=== PATIENT | female | born 1945 | race Caucasian/White ===

== ENCOUNTER → 2020-08-08 | Day surgery (SDC) | payer MEDICARE ==
[~2020-08-08] MED LIST: ALLEGRA ALLERG180 MG PO; ASCORBIC ACID500 MG PO; CALTRATE 600 +1 EAC1 PO; CENTRUM ADULTS1 EACH PO; CLONAZEPAM1 MG PO; DIALYVITE VI1250 MCG PO; DILANTIN100 MG PO; K-DUR20 MEQ PO; LAMICTAL100 MG PO; NORCO 5-325 TA1 EACH PO; PEPCID AC20 MG PO; SINGULAIR10 MG PO; SYNTHROID25 MCG PO; TENORMIN50 MG PO; TRIAMTERENE-HC1 EAC3 PO; XARELTO10 MG PO; ZOLPIDEM TARTRA10 MG PO; ZONEGRAN100 MG PO
== END | disposition home or self-care (01) ==
LOC: FAS 06:47
DX: Z12.11 Encounter for screening for malignant neoplasm of colon (principal); K62.1 Rectal polyp; K21.9 Gastro-esophageal reflux disease without esophagitis; E03.9 Hypothyroidism, unspecified; I10 Essential (primary) hypertension; G47.30 Sleep apnea, unspecified; G40.909 Epilepsy, unspecified, not intractable, without status epilepticus; G43.909 Migraine, unspecified, not intractable, without status migrainosus; M19.90 Unspecified osteoarthritis, unspecified site; Z80.0 Family history of malignant neoplasm of digestive organs; Z20.822 Contact with and (suspected) exposure to COVID-19; Z88.1 Allergy status to other antibiotic agents; Z88.0 Allergy status to penicillin; Z88.5 Allergy status to narcotic agent; Z88.8 Allergy status to other drugs, medicaments and biological substances; Z79.01 Long term (current) use of anticoagulants; Z79.899 Other long term (current) drug therapy; Z90.710 Acquired absence of both cervix and uterus; Z96.659 Presence of unspecified artificial knee joint; Z98.890 Other specified postprocedural states; Z86.79 Personal history of other diseases of the circulatory system
CPT/HCPCS: 88305; J2250; J2704; J7120